=== PATIENT | male | born 1945 | race Asian ===

== ENCOUNTER 2018-05-01 11:05 | Day surgery (SDC) | payer BC ==
[2018-05-01 12:08] VITALS: BMI 25.4
[2018-05-01 12:29] VITALS: TEMP 97.7
[2018-05-01 13:48] VITALS: BP 113/75; PULSE 64
--- NOTE | 2018-05-01 20:22 | EKG ---
Test Reason : Blood Pressure : / mmHG Vent. Rate : 066 BPM Atrial Rate : 066 BPM P-R Int : 168 ms QRS Dur : 086 ms QT Int : 426 ms P-R-T Axes : 061 070 039 degrees QTc Int : 446 ms NORMAL SINUS RHYTHM NONSPECIFIC T WAVE ABNORMALITY ABNORMAL ECG NO PREVIOUS ECGS AVAILABLE Confirmed by JASPER DIANA, CHELO ([id number]) on 05/01/2018 8:21:51 PM Referred By: CHELO HUTCHINSON Confirmed By:CHELO HUTCHINSON MD
--- NOTE | 2018-05-22 13:29 | PN ---
Progress Note (short form) - Note Progress Note: Procedure note: For synchronized cardioversion done on 05/01/18 Consent obtained after discussing risk/benefits Successful synchronized cardioversion with 120J to sinus rhythm Check 12 lead ECG and then follow up in office 1-2 weeks Patient tolerated procedure Naseem Gutiérrez MD
== END 2018-05-01 13:30 | disposition home or self-care (01) ==
LOC: JASU-ENDO 11:05
PROVIDERS: ATTEND Internal Medicine Cardiovascular Disease
PROC: 5A2204Z Restoration of Cardiac Rhythm, Single (ICD-10-PCS; principal; 2018-05-01 12:30)
DX: I48.91 Unspecified atrial fibrillation (principal)
CPT/HCPCS: 92960; 93005; 93010